=== PATIENT | female | born 1995 | race Caucasian/White ===

== ENCOUNTER 2021-02-08 09:33 | Outpatient (REF) | payer OTHER, SELFPAY ==
--- NOTE | ~2021-02-08 | XR_ITS ---
EXAMINATION: XR NASAL BONES CLINICAL INFORMATION: Injury. Pain COMPARISON: None TECHNIQUE: 3 views of the nasal bones were obtained. FINDINGS: There are no fractures or dislocations. No acute bone, joint or soft tissue abnormality is demonstrated. Relative resorption of the nasal septum noted. XR/XR nasal bones min 3V IMPRESSION: No acute fracture.
== END 2021-02-08 09:34 | disposition home or self-care (01) ==
LOC: HO.HMGCX 09:33
PROVIDERS: Visit Provider Internal Medicine
DX: S09.92XA Unspecified injury of nose, initial encounter (principal); X58.XXXA Exposure to other specified factors, initial encounter; Y93.9 Activity, unspecified; Y92.9 Unspecified place or not applicable; Y99.8 Other external cause status
CPT/HCPCS: 70160